=== PATIENT | female | born 1965 ===

== ENCOUNTER 2017-02-24 11:30 | Emergency (ER) | payer OTHER ==
[2017-02-24 11:36] VITALS: BMI 29.4
[2017-02-24 11:38] VITALS: BP 107/69; PULSE 69; RESP 19; TEMP 98.1; O2SAT 98
[2017-02-24] MEDS ORDERED: Lidocaine 1% Inj (20ml) ONE (12:23)
--- NOTE | 2017-02-24 12:36 | ED PDOC ---
Upper Extremity Pain/Injury Time Seen by Provider: 02/24/17 12:18 Chief Complaint (Nursing): Abnormal Skin Integrity Chief Complaint (Provider): Laceration History Per: Patient History/Exam Limitations: no limitations Current Symptoms Are (Timing): Still Present Quality: "Pain" Additional Complaint(s): Theodora Hui is a 51 y/o female presenting to the ER on 02/24/2017 with a laceration to her left first digit. Patient reports she sustained the injury while using a knife when she was cooking at home. Tetanus vaccination is up to date. Past Medical History Reviewed: Historical Data, Nursing Documentation, Vital Signs Vital Signs: Last Vital Signs Temp 98.1 F 02/24/17 11:37 Pulse 69 02/24/17 11:37 Resp 19 02/24/17 11:37 BP 107/69 02/24/17 11:37 Pulse Ox 98 02/24/17 11:37 - Medical History PMH: No Chronic Diseases - Surgical History Surgical History: No Surg Hx - Family History Family History: States: Unknown Family Hx - Social History Current smoker - smoking cessation education provided: No Alcohol: None Drugs: Denies - Home Medications Home Medications: Ambulatory Orders Medication Instructions Recorded Cephalexin [cephalexin] 500 mg PO BID #20 cap 02/24/17 - Allergies Allergies/Adverse Reactions: Allergies Allergy/AdvReac Type Severity Reaction Status Date / Time No Known Allergies Allergy Verified 02/24/17 12:33 Review of Systems ROS Statement: Except As Marked, All Systems Reviewed And Found Negative Musculoskeletal: Positive for: Hand Pain ((+) left first digit ) Neurological: Negative for: Weakness, Numbness Physical Exam - Reviewed Nursing Documentation Reviewed: Yes Vital Signs Reviewed: Yes - Physical Exam Appears: Positive for: Non-toxic, No Acute Distress Head Exam: Positive for: ATRAUMATIC, NORMOCEPHALIC Skin: Positive for: Normal Color. Negative for: Rash Eye Exam: Positive for: Normal appearance Neck: Positive for: Normal Extremity: Positive for: Normal ROM (full ROM actively ), Capillary Refill ( normal ), Other (strength 5/5; no nail bed involvement ). Negative for: Deformity, Swelling Neurologic/Psych: Positive for: Alert, Oriented. Negative for: Motor/Sensory Deficits - ECG O2 Sat by Pulse Oximetry: 98 Medical Decision Making Medical Decision Makin:18 Initial Impression- 51 y/o female with left first digit laceration PROCEDURE: LACERATION REPAIR Performed by the emergency provider Location: Left first digit Distal CMS: Normal. No deficits. Neurovascularly intact. Preparation: The wound was cleaned with NS and [place]. The area was prepped and draped in the usual sterile fashion. Procedure: The wound was closed with 5.0 prolene simple interrupted stitches. Complexity is stimple 9sutures placed Post-Procedure: Good closure and hemostasis. The patient tolerated the procedure well and there were no complications. CSM remains intact. Post procedure dressing applied. pt advised to keep wound clean will be d.c with abx and advised to have pmd for wound check in 5days Documented by Chris Nieves, acting as a scribe for Soo Gonzales PA-C All medical record entries made by the Scribe were at my direction and personally dictated by me. I have reviewed the chart and agree that the record accurately reflects my personal performance of the history, physical exam, medical decision making, and the department course for this patient. I have also personally directed, reviewed, and agree with the discharge instructions and disposition. Disposition - Clinical Impression Clinical Impression: Laceration - Patient ED Disposition Is Patient to be Admitted: No Counseled Patient/Family Regarding: Diagnosis, Need For Followup, Rx Given - Disposition Referrals: [facility] [Outside] Disposition: Routine/Home Disposition Time: 13:08 Condition: STABLE Prescriptions: Cephalexin [cephalexin] 500 mg PO BID #20 cap Instructions: Care For Your Stitches (ED), Laceration (ED), Finger Laceration ( ED) Print Language: CHINESE
== END 2017-02-24 13:22 | disposition home or self-care (01) ==
LOC: H.ER 11:30
DX: S61.211A Laceration without foreign body of left index finger without damage to nail, initial encounter (principal); W26.0XXA Contact with knife, initial encounter; Y93.G1 Activity, food preparation and clean up; Y92.009 Unspecified place in unspecified non-institutional (private) residence as the place of occurrence of the external cause